=== PATIENT | female | born 1965 | race Caucasian/White ===

== ENCOUNTER 2021-11-14 01:13 | Emergency (ER) | payer MEDICAID, OTHER ==
[~2021-11-14] VITALS: Ht 167.6 cm; Wt 130.4 kg
[2021-11-14] MEDS ORDERED: HYDR12.55 PO (02:03)
[2021-11-14] MEDS ORDERED: ESCI5SOL3 PO (02:03)
[2021-11-14] MEDS ORDERED: ASPI81CH33 PO (02:03)
[2021-11-14] MEDS ORDERED: ATOR1TAB21 PO (02:03)
[2021-11-14] MEDS ORDERED: FAMO40TA3 PO (02:03)
[2021-11-14] MEDS ORDERED: CYCL-707 PO (02:03)
[2021-11-14] MEDS ORDERED: ERGO500029 PO (02:03)
[2021-11-14] MEDS ORDERED: BISO5TAB14 PO (02:03)
[2021-11-14] MEDS ORDERED: GLIM4TAB5 PO (02:03)
[2021-11-14] MEDS ORDERED: FLON27.5 (02:03)
[2021-11-14] MEDS ORDERED: LISI5TAB11 PO (02:19)
[2021-11-14] MEDS ORDERED: DITR5TAB PO (02:19)
[2021-11-14] MEDS ORDERED: K-TA10TA PO (02:19)
[2021-11-14] MEDS ORDERED: OMEP40CA4 PO (02:19)
[2021-11-14] MEDS ORDERED: KEPP10002 PO (02:19)
[2021-11-14] MEDS ORDERED: MONT10TA97 PO (02:19)
[2021-11-14] MEDS ORDERED: VIST25CA PO (02:19)
[2021-11-14] MEDS ORDERED: NOVOINJ SC (02:19)
[2021-11-14] MEDS ORDERED: CLAR10CA3 PO (02:19)
[2021-11-14] MEDS ORDERED: LANTINJ4 SC (02:19)
[2021-11-14] MEDS ORDERED: VENTAER INH (02:19)
[2021-11-14] MEDS ORDERED: LIDO5DIS41 TOP (02:19)
[2021-11-14] MEDS ORDERED: NS 1,000 ML IV ONE (07:10)
[2021-11-14] MEDS ORDERED: ACETAMINOPHEN 500 MG TAB PO ONE (07:10)
[2021-11-14] MEDS ORDERED: ALBUTEROL 90 MCG/ACT 8GM HFA INHALER INH ONE (07:15)
[2021-11-14 07:31] LABS: BASO # 0.1 10^3/uL (0.0-0.2); BASO % 0.6 % (0.0-1.0); EOS # 0.4 10^3/uL (0.0-0.5); EOS % 3.8 % (0.0-3.0); HEMATOCRIT 43.5 % (36.0-47.0); HEMOGLOBIN 13.9 g/dl (12.0-15.5); LYMPH # 2.8 10^3/uL (1.5-5.0); LYMPH % 27.6 % (24.0-44.0); MEAN CORPUSCULAR HEMOGLOBIN 27.6 pg (27.0-33.0); MEAN CORPUSCULAR VOLUME 86.5 fl (80.0-96.0); MONO # 0.7 10^3/uL (0.0-0.8); MONO % 6.6 % (2.0-8.0); NEUTROPHILS # 6.3 10^3/uL (1.5-8.5); NEUTROPHILS % 60.6 % (36.0-66.0); PLATELET COUNT, AUTOMATED 295 10^3/uL (150-450); RED BLOOD COUNT 5.03 10^6/uL (4.00-5.40); WHITE BLOOD COUNT 10.3 10^3/uL (4.0-10.0)
[2021-11-14] MEDS ORDERED: TRUL10IN SC (07:38)
[2021-11-14] MEDS ORDERED: ISOVUE-370 76% 100ML VIAL As Ordered ONE (07:40)
[2021-11-14 08:07] LABS: ALBUMIN 2.9 GM/DL (3.2-5.2); BILIRUBIN,DIRECT 0.1 MG/DL (0.0-0.2); BILIRUBIN,TOTAL 0.3 MG/DL (0.2-1.0); C REACTIVE PROTEIN QUANTITATIV 1.45 MG/DL (0.00-0.30); FREE T3 3.6 PG/ML (2.2-4.0); THYROID STIMULATING HORMONE 3.97 uIU/ML (0.358-3.740); TOTAL PROTEIN 7.1 GM/DL (6.4-8.2)
[2021-11-14 08:11] LABS: ERYTHROCYTE SEDIMENTATION RATE 35 mm/hr (0-30)
[2021-11-14] MEDS ORDERED: DOXY-443 PO (10:11)
[2021-11-14] MEDS ORDERED: MEDR32TA PO (10:13)
[2021-11-14] MEDS ORDERED: PRED20TA PO ×2 (10:16→10:19)
[2021-11-14] MEDS ORDERED: ROBI1LIQ9 PO (10:21)
[2021-11-14] MEDS ORDERED: guaiFENesin DM LIQ 10ML UD PO ONE (10:30)
[2021-11-14 10:42] VITALS: BP 141/79
== END 2021-11-14 10:48 | disposition home or self-care (01) ==
LOC: M ED 01:13
DX: J44.1 Chronic obstructive pulmonary disease with (acute) exacerbation (principal); J01.90 Acute sinusitis, unspecified; E11.65 Type 2 diabetes mellitus with hyperglycemia; I10 Essential (primary) hypertension; E78.5 Hyperlipidemia, unspecified; F17.200 Nicotine dependence, unspecified, uncomplicated; Z88.0 Allergy status to penicillin; Z88.6 Allergy status to analgesic agent; Z88.8 Allergy status to other drugs, medicaments and biological substances; Z79.82 Long term (current) use of aspirin; Z79.899 Other long term (current) drug therapy
CPT/HCPCS: 36415; 70491; 71046; 80047; 80076; 83690; 83880; 84443; 84481; 84702; 85025; 85652; 86140; 87798; 87880; 93005; 94640; 96360; 96361; 99284; Q9967